=== PATIENT | female | born 1980 | race Caucasian/White ===

== ENCOUNTER 2016-11-04 05:41 | Outpatient (CLI) | payer OTHER ==
[~2016-11-04] VITALS: Ht 160 cm; Wt 59.9 kg
[~2016-11-04 05:41] MED LIST: AMOX250S6 PO; CEFD300C3 PO; FLC150T PO; HYDR-757 PO; HYDR118S PO; IBUP-1773 PO; ONDA4TAB11 PO; VIT B12 INJECTION IM; birth control; dexamethasone PO; tetracaine lollipops PO
== END 2016-11-04 15:08 ==
LOC: PREOP 05:41
PROVIDERS: ATTEND Surgery Pediatric Surgery
DX: Z01.818 Encounter for other preprocedural examination (principal); R10.32 Left lower quadrant pain

== ENCOUNTER 2016-11-06 08:35 | Day surgery (SDC) | payer OTHER ==
[~2016-11-06] VITALS: Ht 160 cm; Wt 59.9 kg
[2016-11-06] MEDS ORDERED: FLUMAZENIL (ROMAZICON) 0.1 MG/ML 5 ML VIAL INJ PRN (09:15)
[2016-11-06] MEDS ORDERED: NALOXONE 0.4 MG/ML 1 ML (NARCAN) VIAL IVP PRN (09:15)
[2016-11-06] MEDS ORDERED: NS IV 500 ML 500 ML IV ONE (09:15)
[2016-11-06 09:37] VITALS: BP 111/77
[2016-11-06] MEDS ORDERED: LIDOCAINE JELLY 2% (XYLOCAINE) 5 ML TUBE ONE (09:37)
[2016-11-06] MEDS ORDERED: proPOfol 200 MG/20 ML (DIPRIVAN) VIAL IV ONE ×2 (10:17→10:39)
[2016-11-06] MEDS ORDERED: MIDAZOLAM 2 MG/2 ML (VERSED) VIAL ONE ×2 (10:17→10:37)
--- NOTE | 2016-11-06 10:28 | Progress Note-Pre Operative ---
Pre-Operative Progress Note H&P Reviewed The H&P was reviewed, patient examined and no changes noted. Date H&P Reviewed: Nov 06, 2016 Time H&P Reviewed: 10:00 Pre-Operative Diagnosis: abdominal pain, rectal bleeding AMINTA ANTHONY MD Nov 06, 2016 10:28 am
[2016-11-06] MEDS ORDERED: LIDOCAINE JELLY 2% (XYLOCAINE) 5 ML TUBE TOP ONE (10:30)
[2016-11-06] MEDS ORDERED: ONDANSETRON 4 MG/2 ML (SDV) Z0FRAN IV PRN (10:30)
[2016-11-06] MEDS ORDERED: morphine INJ 10 MG/ML 1ML (SYR OR VIAL) IV PRN (10:30)
[2016-11-06] MEDS ORDERED: HYDROcodone/APAP 5 MG/325 MG (LORTAB) TAB PO PRN (10:30)
[2016-11-06] MEDS ORDERED: ACETAMINOPHEN 325 MG TABLET/CAPLET (TYLENOL) PO PRN (10:30)
--- NOTE | 2016-11-06 11:10 | Progress Note-Post Operative ---
Post-Operative Progess Note Pre-Operative Diagnosis abdominal pain, rectal bleeding Post-Operative Diagnosis mild distal proctitis Post-Op Procedure Note Date of Procedure: Nov 06, 2016 Name of Procedure: Colonoscopy with bx Anesthesia Type MAC Estimated blood loss (mL): minimal Specimen(s) collected rectum x2 AMINTA ANTHONY MD Nov 06, 2016 11:10 am
[2016-11-06] MEDS ORDERED: HYDR15FO RC (11:14)
--- NOTE | 2016-11-06 11:16 | Discharge Inst-Surgical ---
D/C Lap Instructions-GABRIELLE New, Converted, or Re-Newed RX: RX on Chart Follow Up PRN Activity as tolerated Low residue diet Avoid Alcohol, Caffeine, Spicy [place] and Acid foods. Drink 64 fluid oz or more of fluids per day. Symptoms to Report: Fever over 101 degree F, Nausea/Vomiting If any problems/questions: Contact your physician or go to Emergency Room AMINTA ANTHONY MD Nov 06, 2016 11:16 am
[2016-11-06 11:25] VITALS: BP 109/67
[2016-11-06 11:50] VITALS: BP 101/64
[2016-11-06 12:03] VITALS: BP 101/64
--- NOTE | 2016-11-07 11:49 | OPERATIVE REPORT ---
PROCEDURE PHYSICIAN: AMINTA BACK DATE OF PROCEDURE: 11/06/2016 ATTENDING PHYSICIAN: Dr. Rose Marie Walker. PREOPERATIVE DIAGNOSIS: Abdominal pain and rectal bleeding. POSTOPERATIVE DIAGNOSES: 1. Mild proctitis. 2. The remainder of the colon and rectum were normal. 3. There were no polyps or any neoplasms identified. PROCEDURE: Colonoscopy with biopsy. SURGEON: Dr. Back. ANESTHESIA: Monitored anesthesia care, administered by anesthesia. ESTIMATED BLOOD LOSS: Minimal FINDINGS: Mild distal proctitis with mucosal inflammatory changes identified. There were no ulcerations. The sigmoid colon, as well as the remainder of the colon were normal. There were no other mucosal inflammatory changes, as well as no polyps or any neoplasms. DISPOSITION: The patient tolerated the procedure well. Ms. Natalie Beach is a 36-year-old female who has had approximately 2-1/2 half years of intermittent abdominal pain, as well as rectal bleeding. She reports that around November 2014, she did have a CT scan, which did show a nonobstructive 3 mm right kidney stone. She also had evidence of a ruptured ovarian cyst. She was then seen by [facility] where diagnostic laparoscopy performed and did have bilateral salpingectomy as well as a right ovarian cystectomy and biopsy. She states that the pain has been better, however she has had continued intermittent episodes of mucousy stools, as well as rectal bleeding for the past 2 years. She also does reports abdominal pain usually in the left lower abdominal quadrant, which is intermittent as well. She does not report any family history of inflammatory bowel disease. She does report a remote family history of colon cancer with her maternal aunt having the disease. The patient was brought to the endoscopy suite, laid in the left lateral decubitus position. After adequate IV pain and sedative medications and monitored anesthesia care, administered by anesthesia, a digital rectal examination was performed. There were no hemorrhoids identified. Normal sphincter tone was felt and there are no palpable masses. The uterus was palpable and appeared normal. The endoscope was then intubated into the anus, rectum gently insufflated. The endoscope was then advanced through the first valve of Mast of the rectum and there were some mild inflammatory changes identified consistent with mild proctitis. There was no active bleeding identified. Several biopsies were taken with forceps with visualization of good hemostasis. The endoscope was then advanced further through the rectum where the inflammatory changes stopped. We then proceeded through the sigmoid colon where no diverticulosis identified. The endoscope was then advanced through the remainder of the descending, transverse, and ascending colon to the cecum. These segments were normal. There were no other mucosal inflammatory changes, as well as no, polyps or any neoplasms identified. The endoscope was then slowly withdrawn while taking a second look and suctioning residual air with no additional findings. The patient tolerated the procedure well. We will await the biopsy results however proceed with a trial of ProctoFoam steroid rectal suppository in hopes of decreasing the inflammation and her symptoms. If her signs and symptoms are consistent with some form of inflammatory bowel disease we will also recommend referral to a electrician refinery for continued medical management. Job ID: [id number] Dictated Date: 11/06/2016 11:10:00 Optical Effects Layout Person Date: 11/07/2016 11:41:10 / [email or web address]
== END 2016-11-06 12:05 | disposition home or self-care (01) ==
LOC: ENDO 08:35
PROVIDERS: ATTEND Surgery Pediatric Surgery
DX: K62.89 Other specified diseases of anus and rectum (principal)
CPT/HCPCS: 84703; 88305